=== PATIENT | male | born 1995 | race African-American/Black ===

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

== ENCOUNTER 2017-02-03 08:47 | Emergency (ER) | payer OTHER ==
--- NOTE | 2017-02-03 09:47 | ED ---
Lower Extremity - HPI Summary HPI Summary: 22 male presents with complaints of left ankle pain and injury that occurred on while playing basketball. Patient states he rolled his ankle. Since then he has had pain, swelling and bruising. Has been able to bear weight however has been limping. Has not taken any medications. Has been icing and elevating. Denies numbness/tingling. No other injuries, did not hit his head. Denies PMHx. - History of Current Complaint Chief Complaint: EDExtremityLower Stated Complaint: LT ANKLE INJURY Time Seen by Provider: 02/03/17 08:56 Hx Obtained From: Patient Mechanism Of Injury: Twisted Onset of Pain: Immediate Onset/Duration: Days Severity Initially: Moderate Severity Currently: Moderate Pain Intensity: 7 Pain Scale Used: 0-10 Numeric Timing: Constant Location: Is Discrete @ - left ankle/foot Character Of Pain: Aching, Stiffness Associated Signs And Symptoms: Positive: Swelling, Bruising Aggravating Factor(s): Standing, Ambulation, Movement Alleviating Factor(s): Rest, Elevation, Ice Able to Bear Weight: Yes - Allergies/Home Medications Allergies/Adverse Reactions: Allergies Allergy/AdvReac Type Severity Reaction Status Date / Time Chocolate Allergy Unknown Verified 02/03/17 09:17 Reaction Details black pepper Allergy Mild Headache Uncoded 10/10/16 08:04 CATS Allergy Mild Headache Uncoded 10/10/16 08:04 EGG WHITES Allergy Mild Headache Uncoded 10/10/16 08:04 Home Medications: Home Medications NK [No Home Medications Reported] 02/03/17 [History Confirmed 02/03/17] PMH/Surg Hx/FS Hx/Imm Hx Endocrine/Hematology History: Denies: Hx Anticoagulant Therapy, Hx Diabetes, Hx Thyroid Disease Cardiovascular History: Denies: Hx Hypercholesterolemia, Hx Hypertension, Hx Pacemaker/ICD, Hx Peripheral Vascular Disease Respiratory History: Denies: Hx Asthma, Hx Chronic Obstructive Pulmonary Disease (COPD) GI History: Denies: Hx Ulcer Musculoskeletal History: Denies: Hx Arthritis, Hx Rheumatoid Arthritis, Hx Osteoporosis Sensory History: Reports: Hx Vision Problem, Hx Hearing Aid - LEFT EAR WILL REMOVE Denies: Hx Cataracts, Hx Contacts or Glasses, Hx Glaucoma Opthamlomology History: Reports: Hx Vision Problem Denies: Hx Cataracts, Hx Contacts or Glasses, Hx Glaucoma Neurological History: Denies: Hx Headaches, Hx Seizures, Hx Transient Ischemic Attacks (TIA) Psychiatric History: Reports: Hx Depression, Hx Suicide Attempt Denies: Hx Anxiety, Hx Attention Deficit Hyperactivity Disorder, Hx Eating Disorder, Hx Panic Disorder, Hx Post Traumatic Stress Disorder, Hx Inpatient Treatment, Hx Community Mental Health Tx, Hx Schizophrenia, Hx Bipolar Disorder , Hx of Violent Episodes Against Others, Hx Substance Abuse, Other Psychiatric Issues/Disorders - Surgical History Surgery Procedure, Year, and Place: T&A 1999, EAR TUBES 1999 - Immunization History Date of Tetanus Vaccine: UTD Date of Influenza Vaccine: none Immunizations Up to Date: Yes Infectious Disease History: No Infectious Disease History: Denies: Hx Hepatitis, Hx Human Immunodeficiency Virus (HIV), Traveled Outside the [place] in Last 30 Days - Family History Known Family History: Positive: None - Social History Alcohol Use: None Hx Substance Use: No Substance Use Type: Reports: None Hx Tobacco Use: No Smoking Status (MU): Former Smoker Have You Smoked in the Last Year: No Review of Systems Constitutional: Negative Cardiovascular: Negative Respiratory: Negative Positive: Arthralgia, Myalgia, Decreased ROM - left ankle/ambika, Edema Positive: Bruising All Other Systems Reviewed And Are Negative: Yes Physical Exam Triage Information Reviewed: Yes Vital Signs On Initial Exam: Initial Vitals Temp Pulse Resp BP Pulse Ox 97.1 F 88 16 100/52 98 02/03/17 08:49 02/03/17 08:49 02/03/17 08:49 02/03/17 08:49 02/03/17 08:49 Vital Signs Reviewed: Yes Appearance: Positive: Well-Appearing, No Pain Distress, Well-Nourished Skin: Positive: Warm, Skin Color Reflects Adequate Perfusion, Dry, Other - ecchymosis and edema of left lateral ankle and foot. rest of skin exam normal, no crepitus, obvious deformity, step off noted.. Negative: Cold, Numb Head/Face: Positive: Normal Head/Face Inspection Eyes: Positive: Conjunctiva Clear ENT: Positive: Hearing grossly normal Neck: Positive: Supple, Nontender Respiratory/Lung Sounds: Positive: Clear to Auscultation, Breath Sounds Present. Negative: Rales, Rhonchi, Wheezes Cardiovascular: Positive: Normal, RRR, Pulses are Symmetrical in both Upper and Lower Extremities. Negative: Murmur Abdomen Description: Positive: Nontender, Soft Bowel Sounds: Positive: Present Musculoskeletal: Positive: Limited @ - with flexion, extension and rotating left ankle due to pain. better with passive ROM, Pain @ - left lateral ankle and foot with palpation, Edema Left. Negative: Interruption @ Neurological: Positive: Normal, Sensory/Motor Intact - sensation intact, Alert, Oriented to Person Place, Time, CN Intact II-III, Reflexes Intact, NV Bundle Intact Distally, Abnormal Gait - limping, bearing more weight on right leg Psychiatric: Positive: Normal, Affect/Mood Appropriate AVPU Assessment: Alert Diagnostics - Vital Signs Vital Signs Temp Pulse Resp BP Pulse Ox 02/03/17 08:52 97.1 F 76 16 100/52 99 02/03/17 08:49 97.1 F 88 16 100/52 98 - Laboratory Lab Statement: Any lab studies that have been ordered have been reviewed, and results considered in the medical decision making process. - Radiology left ankle Xray Interpretation: No Acute Changes - NO ACUTE OSSEOUS INJURY. IF SYMPTOMS PERSIST, RECOMMEND REPEAT IMAGING. Radiology Interpretation Completed By: Radiologist Lower Extremity Course/Dx - Course Course Of Treatment: Given ibuprofen while in ED for pain and inflammation. X- ray obtained and negative for fracture. Aware of worsening signs and symptoms. RICE and NSAIDs. Non-weight bearing until symptoms improve. Brace and jesika bandage. If do not improve return for repeat imaging. Follow up with PCP. - Diagnoses Differential Diagnosis/HQI/PQRI: Positive: Contusion, Dislocation, Fracture ( Closed), Sprain, Strain Provider Diagnoses: Left ankle sprain Discharge - Discharge Plan Condition: Stable Disposition: HOME Patient Education Materials: Ankle Sprain (ED) Referrals: Eamon Ho MD [Primary Care Provider] - Additional Instructions: Take Advil for pain and inflammation for the next 2-3 days. Do not bear weight for the next week. Rest, elevate and ice. For the next 2 weeks. Wear brace and jesika bandage for support and compression. If symptoms worsen or do not improve within the next week please seek medical attention. Follow up with PCP
[2017-02-03] MEDS ORDERED: Ibuprofen TAB* 600 MG PO ONE (09:54)
--- NOTE | 2017-02-03 09:54 | RAD ---
HISTORY: Left lateral ankle pain and injury COMPARISONS: None VIEWS: 3, Frontal, lateral, and oblique views of the left ankle FINDINGS: BONE DENSITY: Normal. BONES: There is no displaced fracture. JOINTS: There is no arthropathy. ALIGNMENT: There is no dislocation. SOFT TISSUES: Unremarkable. OTHER FINDINGS: None. IMPRESSION: NO ACUTE OSSEOUS INJURY. IF SYMPTOMS PERSIST, RECOMMEND REPEAT IMAGING.
[2017-02-03 11:21] VITALS: BP 113/69
== END 2017-02-03 11:05 | disposition home or self-care (01) ==
LOC: ED 08:47
DX: S93.402A Sprain of unspecified ligament of left ankle, initial encounter (principal); M25.572 Pain in left ankle and joints of left foot; Z87.891 Personal history of nicotine dependence; X50.9XXA Other and unspecified overexertion or strenuous movements or postures, initial encounter; Y93.67 Activity, basketball; Y92.9 Unspecified place or not applicable; Y99.9 Unspecified external cause status
CPT/HCPCS: 99282; A9270-GY

== ENCOUNTER 2017-09-30 13:38 | Emergency (ER) | payer OTHER ==
[2017-09-30] MEDS ORDERED: Gelfoam 12-7 ADSORBABL SPONGE* 1 EA SPONGE ONE (14:15)
[2017-09-30] MEDS ORDERED: Lidocaine 1%* 5 ML VIAL ONE (14:46)
[2017-09-30] MEDS ORDERED: Ibuprofen TAB* 600 MG PO ONE (15:29)
--- NOTE | 2017-09-30 15:32 | ED ---
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 Denies any known FB. no significant blood loss. No numbness/tingling. No other complaints. No PMHx. Right hand dominant and no anticoagulant use. Does have ROM however refrains due to laceration, especially on 4th digit. - History of Current Complaint Stated Complaint: LT HAND INJURY Time Seen by Provider: 09/30/17 13:54 Hx Obtained From: Patient Mechanism of Injury: Sharp/Blunt Trauma - glass Onset/Duration: Sudden Onset Aggravating: Movement Alleviating: Compression Onset Severity: Moderate Current Severity: Mild Pain Intensity: 3 Pain Scale Used: 0-10 Numeric Related Hx: Dominant Hand (Right) - Allergy/Home Medications Allergies/Adverse Reactions: Allergies Allergy/AdvReac Type Severity Reaction Status Date / Time MS Chocolate [Chocolate] Allergy Unknown Verified 09/30/17 13:43 Reaction Details black pepper Allergy Mild Headache Uncoded 09/30/17 13:43 CATS Allergy Mild Headache Uncoded 09/30/17 13:43 EGG WHITES Allergy Mild Headache Uncoded 09/30/17 13:43 PMH/Surg Hx/FS Hx/Imm Hx Endocrine/Hematology History: Denies: Hx Anticoagulant Therapy, Hx Diabetes, Hx Thyroid Disease Cardiovascular History: Denies: Hx Hypercholesterolemia, Hx Hypertension, Hx Pacemaker/ICD, Hx Peripheral Vascular Disease Respiratory History: Denies: Hx Asthma, Hx Chronic Obstructive Pulmonary Disease (COPD) GI History: Denies: Hx Ulcer Musculoskeletal History: Denies: Hx Arthritis, Hx Rheumatoid Arthritis, Hx Osteoporosis Sensory History: Reports: Hx Vision Problem, Hx Hearing Aid - LEFT EAR WILL REMOVE Denies: Hx Cataracts, Hx Contacts or Glasses, Hx Glaucoma Opthamlomology History: Reports: Hx Vision Problem Denies: Hx Cataracts, Hx Contacts or Glasses, Hx Glaucoma Neurological History: Denies: Hx Headaches, Hx Seizures, Hx Transient Ischemic Attacks (TIA) Psychiatric History: Reports: Hx Depression, Hx Suicide Attempt Denies: Hx Anxiety, Hx Attention Deficit Hyperactivity Disorder, Hx Eating Disorder, Hx Panic Disorder, Hx Post Traumatic Stress Disorder, Hx Inpatient Treatment, Hx Community Mental Health Tx, Hx Schizophrenia, Hx Bipolar Disorder , Hx of Violent Episodes Against Others, Hx Substance Abuse, Other Psychiatric Issues/Disorders - Surgical History Surgery Procedure, Year, and Place: T&A 1999, EAR TUBES 1999 - Immunization History Date of Tetanus Vaccine: UTD ~4 years ago with last laceration, will check with PCP Date of Influenza Vaccine: none Immunizations Up to Date: Yes Infectious Disease History: No Infectious Disease History: Denies: Hx Hepatitis, Hx Human Immunodeficiency Virus (HIV), Traveled Outside the [place] in Last 30 Days - Family History Known Family History: Positive: None - Social History Alcohol Use: None Hx Substance Use: No Substance Use Type: Reports: None Hx Tobacco Use: No Smoking Status (MU): Former Smoker Have You Smoked in the Last Year: No Review of Systems Constitutional: Negative ENT: Negative Cardiovascular: Negative Positive: Other - laceration Neurological: Negative All Other Systems Reviewed And Are Negative: Yes Physical Exam Triage Information Reviewed: Yes Vital Signs On Initial Exam: Initial Vitals Temp Pulse Resp BP Pulse Ox 97.9 F 86 15 123/89 99 09/30/17 13:40 09/30/17 13:40 09/30/17 13:40 09/30/17 13:40 09/30/17 13:40 Vital Signs Reviewed: Yes Appearance: Positive: Well-Appearing, No Pain Distress, Well-Nourished Skin: Positive: Warm, Skin Color Reflects Adequate Perfusion, Dry, Cold, Other - 3.5cm laceration to dorsal 4th digit over PIP, small .5cm laceration to 1st digit dorsum and skin avulsion 5th digit. bleeding controlled, no FB. Negative : Numb, Cyanosis @, Erythema @ Neck: Positive: Supple Respiratory/Lung Sounds: Positive: Clear to Auscultation, Breath Sounds Present. Negative: Rales, Rhonchi, Wheezes Cardiovascular: Positive: Normal, RRR, Pulses are Symmetrical in both Upper and Lower Extremities - 2+. Negative: Murmur, Rub Musculoskeletal: Positive: Normal, Strength/ROM Intact, Limited @ - at 4th digit PIP due to laceration and pain however is able to move it, tendons appear to be intact, Pain @ - tender around laceration. Negative: Edema Left, Edema Right Neurological: Positive: Normal, Sensory/Motor Intact, Alert, Oriented to Person Place, Time, NV Bundle Intact Distally Procedures - Laceration/Wound Repair 1 Location: Other - 4th digit, left hand, 2nd digit left hand Description: Linear Anesthesia: Local, 1.0%, Lido Length, Depth and Shape: 3.5cm linear, throught adipose tissue, no obvious tendon laceration evident, 4th dorsal PIP left hand, .5cm superficial lac to 1st digit, skin avulsion 5th digit Betadine Prep?: Yes Irrigated w/ Saline (ccs): 100 - under pressure device Laceration/Wound Explored: clean, no foreign body removed - non visible Closure: Skin Adhesive - for left 2nd digit, xeroform also and on 5th digit skin avulsion, Single Layer - 6 sutures 4th digit Suture Type: Nylon - 4-0 Number of Sutures: 6 Layer Closure?: No Sterile Dressing Applied?: Yes Diagnostics - Vital Signs Vital Signs Temp Pulse Resp BP Pulse Ox 09/30/17 13:40 97.9 F 86 15 123/89 99 - Laboratory Lab Statement: Any lab studies that have been ordered have been reviewed, and results considered in the medical decision making process. - Radiology left ring finger Xray Interpretation: Positive (See Comments) - likely tiny radioopaque FB in soft tissue swelling of PIP joint 4th digit Laceration Repair Course/Dx - Course Course Of Treatment: wound was thoroughly irrigated without visible FB. 2nd and 5th digit skin adheisve and xeroform applied, dressed. 4th digit laceration was closed using 6 sutures without complication. patient tolerated procedure well, without complication. no other concerns. xray obtained did show possible FB microscopic, however wound thoroughly irrigated prior to closure. appears tendons intact. normal snesation and bony structure. no other concerns. keep clean and dry. RICE and ibuprofen. tetanus utd, is checking with PCP. aware of worsening signs and symptoms to watch out for. follow up.remove stitches in 7- 10 days. placed in finger immobilzer for 4th digitdue to extensive laceration and over joint. keep applied for 3-5 days - Differential Dx Differental Diagnoses: Abrasion, Avulsion, Laceration, Tendon Laceration - Clinical Impression Provider Diagnoses: Laceration of ring finger, Avulsion of skin of finger Discharge - Discharge Plan Condition: Good Disposition: HOME Patient Education Materials: Care For Your Stitches (ED), Laceration (ED), Skin Adhesive Care (ED) Referrals: Eamon Ho MD [Primary Care Provider] - Additional Instructions: Take ibuprofen for pain and inflammation. Elevate, rest and ice. Leave splint applied avoid bending until healed. Be sure to check on last tetanus was in the past 5 years. Watch for signs of infection, redness, discharge, fever, if develop seek medical attention. Do not get wounds wet for 48 hours. Do not remove finger immobilizer for atleast 5 days or until healed. After 48 hours gently rinse and dry well, apply triple antibiotics (neosporin) keep clean and dry, you may recover if desired. Any new or worsening symptoms please seek medical attention, as discussed. Follow up and have stitches removed in 7-10 days.
[2017-09-30 15:50] VITALS: BP 118/68
--- NOTE | 2017-09-30 15:59 | RAD ---
Indication: Evaluate for foreign body. 3 views of left middle finger demonstrates soft tissue swelling in the ulnar aspect of the proximal interphalangeal joint of the ring finger. There is tiny radiopaque foreign body is noted. IMPRESSION: There is likely tiny radiopaque foreign body in the soft tissue swelling at the proximal interphalangeal joint of the left ring finger.
== END 2017-09-30 15:50 | disposition home or self-care (01) ==
LOC: ED 13:38
DX: S61.215A Laceration without foreign body of left ring finger without damage to nail, initial encounter (principal); S61.221A Laceration with foreign body of left index finger without damage to nail, initial encounter; S61.217A Laceration without foreign body of left little finger without damage to nail, initial encounter; W25.XXXA Contact with sharp glass, initial encounter; Y93.72 Activity, wrestling; Y92.9 Unspecified place or not applicable; Z87.891 Personal history of nicotine dependence
CPT/HCPCS: 12002; 73140; 99282; A9270-GY

== ENCOUNTER 2019-09-15 15:43 | Emergency (ER) | payer OTHER ==
--- NOTE | 2019-09-15 15:56 | ED ---
Laceration/Wound HPI - HPI Summary HPI Summary: Patient presents with laceration to left lower gutierrez. Laceration caused by machete. Patient was trying to cut material with a machete when it fell through material and nicked his leg. Patient is ambulatory. Bleeding controlled. Denies any pain, other injury or symptoms. Medical history is none. Tetanus status up-to-date. - History of Current Complaint Stated Complaint: LT GUTIERREZ LAC PER PT Time Seen by Provider: 09/15/19 15:55 Hx Obtained From: Patient Mechanism of Injury: Sharp/Blunt Trauma Onset/Duration: Lasting Hours Aggravating: Nothing Alleviating: Nothing Onset Severity: Mild Current Severity: None Pain Intensity: 0 Pain Scale Used: 0-10 Numeric Associated Signs & Symptoms: Negative - Allergy/Home Medications Allergies/Adverse Reactions: Allergies Allergy/AdvReac Type Severity Reaction Status Date / Time MS Chocolate [Chocolate] Allergy Unknown Verified 09/15/19 15:49 Reaction Details black pepper Allergy Mild Headache Uncoded 09/30/17 13:43 CATS Allergy Mild Headache Uncoded 09/30/17 13:43 EGG WHITES Allergy Mild Headache Uncoded 09/30/17 13:43 PMH/Surg Hx/FS Hx/Imm Hx Endocrine/Hematology History: Denies: Hx Anticoagulant Therapy, Hx Diabetes, Hx Thyroid Disease Cardiovascular History: Denies: Hx Hypercholesterolemia, Hx Hypertension, Hx Pacemaker/ICD, Hx Peripheral Vascular Disease Respiratory History: Denies: Hx Asthma, Hx Chronic Obstructive Pulmonary Disease (COPD) GI History: Denies: Hx Ulcer Musculoskeletal History: Denies: Hx Arthritis, Hx Rheumatoid Arthritis, Hx Osteoporosis Sensory History: Reports: Hx Vision Problem, Hx Hearing Aid - LEFT EAR WILL REMOVE Denies: Hx Cataracts, Hx Contacts or Glasses, Hx Glaucoma Opthamlomology History: Reports: Hx Vision Problem Denies: Hx Cataracts, Hx Contacts or Glasses, Hx Glaucoma EENT History: Denies: Hx Deafness Neurological History: Denies: Hx Headaches, Hx Seizures, Hx Transient Ischemic Attacks (TIA) Psychiatric History: Reports: Hx Depression, Hx Suicide Attempt Denies: Hx Anxiety, Hx Attention Deficit Hyperactivity Disorder, Hx Eating Disorder, Hx Panic Disorder, Hx Post Traumatic Stress Disorder, Hx Inpatient Treatment, Hx Community Mental Health Tx, Hx Schizophrenia, Hx Bipolar Disorder , Hx of Violent Episodes Against Others, Hx Substance Abuse, Other Psychiatric Issues/Disorders - Surgical History Surgery Procedure, Year, and Place: T&A 1999, EAR TUBES 2000 - Immunization History Date of Tetanus Vaccine: UTD ~4 years ago with last laceration, will check with PCP Date of Influenza Vaccine: none Infectious Disease History: No Infectious Disease History: Denies: Hx Hepatitis, Hx Human Immunodeficiency Virus (HIV), Traveled Outside the [place] in Last 30 Days - Family History Known Family History: Positive: None - Social History Alcohol Use: None Hx Substance Use: No Substance Use Type: Reports: None Hx Tobacco Use: No Smoking Status (MU): Former Smoker Have You Smoked in the Last Year: No Review of Systems Constitutional: Negative Eyes: Negative ENT: Negative Cardiovascular: Negative Respiratory: Negative Gastrointestinal: Negative Genitourinary: Negative Musculoskeletal: Negative Skin: Other Neurological/Mental Status: Negative Psychological: Normal All Other Systems Reviewed And Are Negative: Yes Physical Exam Triage Information Reviewed: Yes Vital Signs On Initial Exam: Initial Vitals Temp Pulse Resp BP Pulse Ox 98.8 F 93 18 130/91 98 09/15/19 15:46 09/15/19 15:46 09/15/19 15:46 09/15/19 15:46 09/15/19 15:46 Vital Signs Reviewed: Yes Appearance: Positive: Well-Appearing Skin: Positive: Warm Head/Face: Positive: Normal Head/Face Inspection Eyes: Positive: Normal Neck: Positive: Supple Respiratory/Lung Sounds: Positive: Clear to Auscultation Cardiovascular: Positive: Normal Abdomen Description: Positive: Nontender Musculoskeletal: Positive: Normal Neurological: Positive: Normal Psychiatric: Positive: Normal AVPU Assessment: Alert - [place] Coma Scale Best Eye Response: 4 - Spontaneous Best Motor Response: 6 - Obeys Commands Best Verbal Response: 5 - Oriented Coma Scale Total: 15 Procedures - Sedation Patient Received Moderate/Deep Sedation with Procedure: No - Laceration/Wound Repair 1 Location: lower extremity Description: Linear Anesthesia: Local, 1.0% Length, Depth and Shape: 2cmx.5cm Irrigated w/ Saline (ccs): 300 Laceration/Wound Explored: clean Debridement: minimal Suture Type: Prolene Number of Sutures: 3 - 4.0 Layer Closure?: No Sterile Dressing Applied?: No Diagnostics - Vital Signs Vital Signs Temp Pulse Resp BP Pulse Ox 09/15/19 15:46 98.8 F 93 18 130/91 98 - Laboratory Lab Statement: Any lab studies that have been ordered have been reviewed, and results considered in the medical decision making process. Laceration Repair Course/Dx - Course Course Of Treatment: Patient presents with laceration to left lower gutierrez. Laceration caused by machete. Patient was trying to cut material with a machete when it fell through material and nicked his leg. Patient is ambulatory. Bleeding controlled. Denies any pain, other injury or symptoms. Medical history is none. Tetanus status up-to-date. Vital signs within normal limits. Wound cleaned and sutured. - Clinical Impression Provider Diagnoses: Laceration Discharge ED - Sign-Out/Discharge Documenting (check all that apply): Patient Departure - Discharge Plan Condition: Stable Disposition: HOME Patient Education Materials: Care For Your Stitches (ED), Laceration (ED) Referrals: Eamon Ho MD [Primary Care Provider] - Additional Instructions: Sutures out in 10 days. Starting tomorrow you may wash with warm running water and soap. Do not submerge wound for 5 days. Keep wound clean and dry and protected while healing. Follow-up with primary care. Return to the ED for any new or worsening symptoms. - Billing Disposition and Condition Condition: STABLE Disposition: Home
[2019-09-15 16:44] VITALS: BP 112/72
== END 2019-09-15 16:42 | disposition home or self-care (01) ==
LOC: ED 15:43
DX: S81.812A Laceration without foreign body, left lower leg, initial encounter (principal); W45.8XXA Other foreign body or object entering through skin, initial encounter; Y93.89 Activity, other specified; Y92.9 Unspecified place or not applicable; Z91.012 Allergy to eggs; Z91.018 Allergy to other foods; Z91.09 Other allergy status, other than to drugs and biological substances; Z87.891 Personal history of nicotine dependence
CPT/HCPCS: 12001; 99282